=== PATIENT | female | born 1970 | race Two or more races ===

== ENCOUNTER → 2017-05-18 | Outpatient (CLI) | payer OTHER ==
--- NOTE | 2017-05-18 11:03 | REP ---
LEFT KNEE SERIES: Five views left knee performed. There is no acute fracture or dislocation. There is mild superior patellar spurring. The joint spaces are not significantly narrowed. IMPRESSION: No acute fracture or dislocation. Mild superior patellar spurring. Signed by Robb Fiztpatrick MD 05/18/2017 11:59 A
== END ==
LOC: M LRY 10:20
PROVIDERS: ATTEND Nurse Practitioner Family
DX: M25.562 Pain in left knee (principal)
CPT/HCPCS: 73564; G0463

== ENCOUNTER → 2017-06-29 | Outpatient (CLI) | payer OTHER ==
--- NOTE | 2017-06-29 11:57 | REPMRS ---
Patient History The patient states she has not had a clinical breast exam in over a year. Patient had first child at age 34. Family history of breast cancer in mother at age 49. Digital Mammo Screening Bilat: June 29, 2017 - Exam #: [id number] Bilateral CC and MLO view(s) were taken. Technologist: Vanesa Kerns Technologist Prior study comparison: June 08, 2016, bilateral digital mammo screening bilat performed at [facility]. FINDINGS: There are scattered fibroglandular densities. There has been no change in the appearance of the mammogram from the prior studies. There is a mild amount of scattered fibroglandular density which is fairly symmetric. There is no interval development of dominant mass, architectural distortion, or clustered microcalcification suggestive of malignancy. ASSESSMENT: BI-RADS/ACR category 1 mammogram. Negative. Recommendation Breast MRI of both breasts in 6 months. This patient's Lifetime Breast Cancer RIsk is estimated at 27.9%. Annual screening Breast MRI scanniing is recommended for patient's whose lifetime risk assessment is over 20%. Routine screening mammogram of both breasts in 1 year (for women over age 40). This mammogram was interpreted with the aid of an FDA-approved computer-aided dectection system. Electronically Signed By: Ashwin Mendez MD 06/29/17 [id number]
== END ==
LOC: M RAD 10:12
PROVIDERS: ATTEND Physician Assistant Medical
DX: Z12.31 Encounter for screening mammogram for malignant neoplasm of breast (principal)

== ENCOUNTER → 2018-07-25 | Outpatient (CLI) | payer OTHER | LOC: M RAD 08:07 | DX: Z12.31 Encounter for screening mammogram for malignant neoplasm of breast (principal) | CPT/HCPCS: 77067 ==

== ENCOUNTER → 2019-05-15 | Outpatient (CLI) | payer OTHER ==
--- NOTE | 2019-05-15 10:32 | REPMRS ---
Patient History The patient states she had a clinical breast exam in March 2019.Family history of breast cancer at age 49 in mother. Patient not very tolerant of compression. Indicated problem(s): bilateral pain. Bilateral breast pain on and off. Patient states she does not have any lumps. Digital Mammo Diagnostic Bilateral: May 15, 2019 - Exam #: [id number] Bilateral CC and MLO view(s) were taken. Technologist: Catherine Wells, Technologist Prior study comparison: July 25, 2018, [facility], 2017, [facility] FINDINGS: The breast tissue is heterogeneously dense. This may lower the sensitivity of mammography. There has been no change in the appearance of the mammogram from the prior studies. There is a moderate amount of residual fibroglandular tissue which is fairly symmetric. There is no interval development of dominant mass, areas of architectural distortion, or clustered microcalcification typical of malignancy. Assessment: BI-RADS/ACR category 1 mammogram. Negative Mammogram. Recommendation Routine screening mammogram in 1 year (for women over age 40). This mammogram was interpreted with the aid of an FDA-approved computer-aided dectection system. THE LIFETIME RISK OF BREAST CANCER IS 27.3%, THEREFORE SUPPLEMENTAL SCREENING MRI OF THE BREASTS IS RECOMMENDED IN 6 MONTHS. Electronically Signed By: Robb Fitzpatrick MD 05/15/19 [id number]
== END ==
LOC: M RAD 09:57
PROVIDERS: ATTEND Family Medicine
DX: N63.10 Unspecified lump in the right breast, unspecified quadrant (principal); Z80.3 Family history of malignant neoplasm of breast